=== PATIENT | female | born 1985 | race Caucasian/White ===

== ENCOUNTER 2019-12-22 10:01 | Emergency (ER) | payer OTHER ==
[~2019-12-22] VITALS: Ht 157.5 cm; Wt 52.2 kg
--- NOTE | 2019-12-22 10:07 | NUR ---
Patient to ER bed 02 to gown for evaluation. Side rails up.
[2019-12-22] MEDS ORDERED: ALPR1TAB2 PO (10:11)
[2019-12-22] MEDS ORDERED: BIRTH CONTROL PILLS PO (10:11)
[2019-12-22] MEDS ORDERED: DOCU250C71 PO (10:11)
[2019-12-22 10:13] VITALS: BP_SYST 132
--- NOTE | 2019-12-22 10:15 | NUR ---
Dr Light at bedside examining patient
[2019-12-22 10:22] VITALS: BP_SYST 132
--- NOTE | 2019-12-22 10:24 | NUR ---
PATIENT PRESENTS TO THE ER WITH HX OF SEVERE LEFT SIDED CHEST PAIN INTERMITTENT FOR TWO DAYS; NO TRAUMA, NO OTHER REMARKABLE S/S; PATIENT TO ER #2 AT 1005 AND ASSESSED BY ERMD AT 1010; STAT EKG AND WET ROASTER/SAO2
--- NOTE | 2019-12-22 10:25 | NUR ---
Patient given written and verbal discharge instructions and verbalizes understanding. ER MD discussed with patient the results and treatment provided. Patient in stable condition. ID arm band removed. Rx of Naprosyn given. Patient educated on pain management and to follow up with PMD. Pain Scale 2/10 tolerable for patient. Opportunity for questions provided and answered. Medication side effect fact sheet provided.
--- NOTE | 2019-12-22 10:30 | NUR ---
REASSESSMENT BY ERMD; DISCHARGED WITH [facility] PER ERMD AND PATIENT INDICATED FULL UNDERSTANDING; AMBULATORY WITH MOTHER, UNCHANGED
== END 2019-12-22 10:30 | disposition home or self-care (01) ==
LOC: SED 10:01
DX: M94.0 Chondrocostal junction syndrome [Tietze] (principal)
CPT/HCPCS: 99282